=== PATIENT | female | born 1940 | race Caucasian/White ===

== ENCOUNTER 2020-08-10 18:14 | Inpatient (IN) | payer MEDICARE ==
[~2020-08-10] VITALS: Ht 160 cm; Wt 105.7 kg
[~2020-08-10 18:14] MED LIST: ASPIRIN EC81 MG PO; CLONIDINE1 EAC1 TD; COLACE 100MG C100 MG PO; COREG 12.5MG12.5 MG PO; CRESTOR20 MG PO; GABAPENTIN600 MG PO; MICROZIDE12.5 MG PO; NORVASC 5 MG TAB5 MG PO; OXYCODONE-ACET1 EAC1 PO; PRINIVIL20 MG PO; TOUJEO MAX300 UNIT/1 SQ; VITAMIN D350000 UNIT PO; [UNRECOGNIZED DRUG - CODE] SQ
[2020-08-11] MEDS ORDERED: TOUJEO MAX300 UNIT/1 SQ (00:38)
[2020-08-11] MEDS ORDERED: CRESTOR20 MG PO (00:38)
[2020-08-11] MEDS ORDERED: LISINOPRIL20 MG PO (00:39)
[2020-08-11] MEDS ORDERED: COREG3.125 MG PO (00:40)
[2020-08-11] MEDS ORDERED: ASPIRIN81 MG PO (00:40)
[2020-08-11] MEDS ORDERED: NORVASC5 MG PO ×2 (00:41→00:44)
[2020-08-11] MEDS ORDERED: OZEMPIC0.25 MG/0. SQ (00:42)
[2020-08-11] MEDS ORDERED: GABAPENTIN600 MG PO (00:44)
[2020-08-11 02:55] LABS: HEMOGLOBIN 10.8 gm/dl (12.3-15.3); RED BLOOD COUNT 3.65 M/UL (4.00-5.10); WHITE BLOOD COUNT 15.3 K/UL (4.5-11.0)
--- NOTE | 2020-08-11 03:00 | NUR ---
DISPOSITION CLERK, DANNIELLE, SAID THAT [facility] STATES PCU SHOULD NOT TAKE PATIENT ON DOPAMINE AT A RATE GREATER THAN 5MCG/KG/MIN, BUT THAT SHE HAS SPOKEN WITH [facility] AND [facility]. THEY SAID TO ACCEPT PATIENT AND GO FROM THERE UPON ASSESSMENT ON ARRIVAL. PATIENT ARRIVED ON DOPAMINE DRIP AT 7.5 MCG/KG/MG. MD AND DISPOSITION CLERK IS AWARE OF DRIP RATE.
[2020-08-11 04:35] LABS: BORDETELLA PARAPERTUSSIS Not Detected (Not Detectd); BORDETELLA PERTUSSIS Not Detected (Not Detectd); CHLAMYDIA PNEUMONIAE Not Detected (Not Detectd); CORONAVIRUS HKU1 Not Detected (Not Detectd); CORONAVIRUS NL63 Not Detected (Not Detectd); CORONAVIRUS OC43 Not Detected (Not Detectd); CORONOAVIRUS 229E Not Detected (Not Detectd); HUMAN METAPNEUMOVIRUS Not Detected (Not Detectd); HUMAN RHINOVIRUS/ENTEROVIRUS Not Detected (Not Detectd); INFLUENZA A Not Detected (Not Detectd); INFLUENZA B Not Detected (Not Detectd); MYCOPLASMA PNEUMONIAE Not Detected (Not Detectd); PARAINFLUENZA VIRUS 1 Not Detected (Not Detectd); PARAINFLUENZA VIRUS 2 Not Detected (Not Detectd); PARAINFLUENZA VIRUS 3 Not Detected (Not Detectd); PARAINFLUENZA VIRUS 4 Not Detected (Not Detectd); RESPIRATORY SYNCYTIAL VIRUS Not Detected (Not Detectd)
[2020-08-11 05:42] LABS: SARS-CoV-2 NOT DETECTED (Not Detectd)
--- NOTE | 2020-08-11 15:23 | NUR ---
PT TEMP 94.6 BEAR HUGGER APPLIED. WILL RE CHECK IN 15 MIN
[2020-08-12 03:26] LABS: HEMOGLOBIN 10.3 gm/dl (12.3-15.3); RED BLOOD COUNT 3.43 M/UL (4.00-5.10); WHITE BLOOD COUNT 14.4 K/UL (4.5-11.0)
[2020-08-13 03:05] LABS: HEMOGLOBIN 10.9 gm/dl (12.3-15.3); RED BLOOD COUNT 3.71 M/UL (4.00-5.10); WHITE BLOOD COUNT 17.3 K/UL (4.5-11.0)
[2020-08-14 04:25] LABS: HEMOGLOBIN 10.8 gm/dl (12.3-15.3); RED BLOOD COUNT 3.75 M/UL (4.00-5.10)
[2020-08-14 04:30] LABS: WHITE BLOOD COUNT 23.1 K/UL (4.5-11.0)
[2020-08-15 06:19] LABS: HEMOGLOBIN 11.5 gm/dl (12.3-15.3); RED BLOOD COUNT 4.02 M/UL (4.00-5.10); WHITE BLOOD COUNT 22.4 K/UL (4.5-11.0)
[2020-08-16 05:50] LABS: HEMOGLOBIN 11.3 gm/dl (12.3-15.3); RED BLOOD COUNT 3.83 M/UL (4.00-5.10); WHITE BLOOD COUNT 19.8 K/UL (4.5-11.0)
[2020-08-17 05:49] LABS: HEMOGLOBIN 11.3 gm/dl (12.3-15.3); RED BLOOD COUNT 3.83 M/UL (4.00-5.10); WHITE BLOOD COUNT 17.1 K/UL (4.5-11.0)
[2020-08-19 06:57] LABS: HEMOGLOBIN 11.3 gm/dl (12.3-15.3); RED BLOOD COUNT 3.79 M/UL (4.00-5.10); WHITE BLOOD COUNT 13.9 K/UL (4.5-11.0)
[2020-08-25 06:02] LABS: HEMOGLOBIN 11.6 gm/dl (12.3-15.3); RED BLOOD COUNT 3.87 M/UL (4.00-5.10); WHITE BLOOD COUNT 8.6 K/UL (4.5-11.0)
[2020-08-29 05:38] LABS: HEMOGLOBIN 11.2 gm/dl (12.3-15.3); RED BLOOD COUNT 3.75 M/UL (4.00-5.10)
--- NOTE | 2020-08-30 18:14 | NUR ---
NOTIFIED PHYSICIAN OF DECREASED OUTPUT AND ONLY 175 VOID, ALSO NEED FOR STOOL SOFTNER.
[2020-09-06] MEDS ORDERED: HUMALOG 10100 UNITS/ SC ×2 (08:55)
[2020-09-06] MEDS ORDERED: LANTUS INS100 UTS/M1 SC (08:55)
[2020-09-06] MEDS ORDERED: NYSTOP60 GM EXT (08:55)
[2020-09-06] MEDS ORDERED: AMLODIPINE BESYL5 MG PO (08:55)
[2020-09-06] MEDS ORDERED: LISINOPRIL10 MG PO (08:55)
== END 2020-09-06 23:34 | DRG 871 ==
LOC: MED SURG 4 23:49 → PROG CARE 23:49 → MED SURG 4 08-14 18:21
PROVIDERS: Internal Medicine; Internal Medicine Infectious Disease; Internal Medicine Nephrology; Physician Assistant; ADMIT Internal Medicine
PROC: B24BZZZ Ultrasonography of Heart with Aorta (ICD-10-PCS; principal; 2020-08-11)
DX: A41.9 Sepsis, unspecified organism (principal); R65.21 Severe sepsis with septic shock; N17.0 Acute kidney failure with tubular necrosis; R57.1 Hypovolemic shock; N30.00 Acute cystitis without hematuria; E87.2 Acidosis; G93.40 Encephalopathy, unspecified; K82.8 Other specified diseases of gallbladder; Z20.822 Contact with and (suspected) exposure to COVID-19; E87.6 Hypokalemia; R68.0 Hypothermia, not associated with low environmental temperature; I35.0 Nonrheumatic aortic (valve) stenosis; F03.90 Unspecified dementia, unspecified severity, without behavioral disturbance, psychotic disturbance, mood disturbance, and anxiety; I10 Essential (primary) hypertension; Z87.81 Personal history of (healed) traumatic fracture; Z90.710 Acquired absence of both cervix and uterus; E11.65 Type 2 diabetes mellitus with hyperglycemia; E11.649 Type 2 diabetes mellitus with hypoglycemia without coma; K59.00 Constipation, unspecified; Z79.82 Long term (current) use of aspirin; Z79.4 Long term (current) use of insulin; Z79.899 Other long term (current) drug therapy
CPT/HCPCS: ECHO; 36415; 71045; 74019; 76705; 80048; 80053; 80069; 81001; 82533; 82550; 82553; 82803; 82962; 83036; 83605; 83735; 85025; 87040; 87086; 87633; 93306; 94760; 97110; 97110-GP-CQ; 97112; 97116-GP-CQ; 97162; 97166; 97530; 97530-GP-CQ; A6212; J1265; J1644; J2543; J7030; J7042